=== PATIENT | male | born 1975 | race Caucasian/White ===

== ENCOUNTER 2022-02-21 11:37 | Emergency (ER) | payer MEDICAID, SELFPAY ==
[~2022-02-21] VITALS: Ht 190.5 cm; Wt 102.0 kg
[~2022-02-21 11:37] MED LIST: CETI10TA14 PO; FLUT16SP26; FOLI0.4T14 PO; LORA-269 PO; OXYC-658 PO
--- NOTE | 2022-02-21 12:02 | NUR ---
DIRECTOR EXTERNAL COMMUNICATIONS AWARE OF NEED FOR BED FOR PT - WE ARE CLEANING ROOM AND WILL BRING PT BACK WHEN ITS READY. PT CURRENTLY IN WHEELCHAIR IN LOBBY. MOM WITH PT
[2022-02-21 14:49] LABS: ALANINE AMINOTRANSFERASE 20 U/L (12-78); ALBUMIN 3.8 G/DL (3.4-5.0); ALBUMIN/GLOBULIN RATIO 1.1 (1.1-1.5); ALKALINE PHOSPHATASE 36 IU/L (46-116); ANION GAP 9 (8-16); ASPARTATE AMINO TRANSFERASE 20 U/L (10-37); BILIRUBIN,TOTAL 0.7 MG/DL (0.1-1.0); BLOOD UREA NITROGEN 10 MG/DL (7-18); BUN/CREATININE RATIO 11.1 (5.4-32.0); CALCIUM 8.5 MG/DL (8.5-10.1); CHLORIDE 107 MMOL/L (99-107); GLUCOSE 93 MG/DL (70-104); POTASSIUM 3.6 MMOL/L (3.5-5.1); SODIUM 140 MMOL/L (135-145); TOTAL CARBON DIOXIDE 23.8 MMOL/L (24-32); TOTAL PROTEIN 7.2 G/DL (6.4-8.2); eGFR > 90 ML/MIN
[2022-02-21] MEDS ORDERED: OLANZapine 2.5MG tablet PO STA (15:42)
[2022-02-21] MEDS ORDERED: folic acid 1mg tablet PO STA (15:42)
[2022-02-21] MEDS ORDERED: normal saline 1000ML IV soln IVB ONE (15:45)
[2022-02-21] MEDS ORDERED: LORazepam 1 MG tablet PO ONE (15:45)
[2022-02-21] MEDS ORDERED: thiamine 100mg tablet PO ONE (15:45)
[2022-02-21 15:56] LABS: BASOPHILS % (AUTO) 0.2 % (0-1); EOSINOPHILS % (AUTO) 0.6 % (0-6); HEMATOCRIT 41.5 % (42.0-52.0); HEMOGLOBIN 14.2 g/dl (14.0-17.9); LYMPHOCYTES % (AUTO) 14.8 % (21-51); MEAN CORPUSCULAR HEMOGLOBIN 32.1 PG (27.0-31.0); MEAN CORPUSCULAR HGB CONC 34.3 g/dL (33.0-36.5); MEAN CORPUSCULAR VOLUME 93.4 FL (78-98); MEAN PLATELET VOLUME 8.8 FL (7.4-10.4); MONOCYTES # (AUTO) 0.3 X10'3 (0-0.9); MONOCYTES % (AUTO) 4.8 % (2-12); NEUTROPHILS # (AUTO) 5.5 X10'3 (1.8-7.7); NEUTROPHILS % (AUTO) 79.6 % (42-75); PLATELET COUNT 362 X10'3 (140-440); RED BLOOD COUNT 4.44 X10'6 (4.70-6.10); RED CELL DISTRIBUTION WIDTH 13.5 % (11.5-14.5); WHITE BLOOD COUNT 6.9 X10'3 (4.5-11.0)
[2022-02-21 16:08] LABS: MAGNESIUM 2.3 MG/DL (1.5-2.4)
[2022-02-21 16:13] LABS: ETHANOL < 0.010 GM/DL (0.0-0.010)
[2022-02-21 16:48] LABS: CLARITY,URINE CLEAR (Clear); COLOR,URINE YELLOW (Yellow); GLUCOSE, URINE NEGATIVE (Neg); KETONES,URINE TRACE mg/dl (Neg); LEUKOCYTE ESTERASE ,URINE NEGATIVE (Neg); NITRITES, URINE NEGATIVE (Neg); OCCULT BLOOD,URINE NEGATIVE (Neg); PH,URINE 7.5 (4.8-8.0); PROTEIN,URINE NEGATIVE (Neg)
[2022-02-21 16:49] LABS: UA COLLECTION TYPE CLN CATCH MIDSTREAM
[2022-02-21] MEDS ORDERED: ondansetron 4mg rapidly disintigrating tab PO ONE (16:55)
[2022-02-21 16:58] LABS: URINE AMPHETAMINE SCREEN NEGATIVE (Neg); URINE BARBITUATE SCREEN POSITIVE (Neg); URINE BENZODIAZEPINES SCREEN NEGATIVE (Neg); URINE CANNABINOID SCREEN NEGATIVE (Neg); URINE COCAINE SCREEN NEGATIVE (Neg); URINE METHADONE SCREEN NEGATIVE (Neg); URINE OPIATE SCREEN NEGATIVE (Neg); URINE PHENCYCLIDINE SCREEN NEGATIVE (Neg)
[2022-02-21 19:53] VITALS: BP 126/62
[2022-02-21] MEDS ORDERED: dicyclomine 10 MG capsule PO ONE (20:25)
[2022-02-21] MEDS ORDERED: ONDA8TAB13 PO (20:28)
[2022-02-21] MEDS ORDERED: DICY10CA88 PO (20:28)
[2022-02-21] MEDS ORDERED: LORA-269 PO (20:28)
[2022-02-21] MEDS ORDERED: OLAN2.5T3 PO (20:45)
== END 2022-02-21 21:06 | disposition home or self-care (01) ==
LOC: ER 11:37
DX: F10.239 Alcohol dependence with withdrawal, unspecified (principal); K42.9 Umbilical hernia without obstruction or gangrene; K40.90 Unilateral inguinal hernia, without obstruction or gangrene, not specified as recurrent; K57.90 Diverticulosis of intestine, part unspecified, without perforation or abscess without bleeding; I10 Essential (primary) hypertension; Z86.69 Personal history of other diseases of the nervous system and sense organs; Z72.89 Other problems related to lifestyle; Z88.8 Allergy status to other drugs, medicaments and biological substances; Z79.899 Other long term (current) drug therapy; Y90.9 Presence of alcohol in blood, level not specified
CPT/HCPCS: 36415; 74176; 80053; 80305; 80320; 81003; 83735; 84484; 85025; 93005; 96360; 99285; J7030